=== PATIENT | female | born 1945 | race African-American/Black ===

== ENCOUNTER 2016-11-04 19:58 | Observation (INO) | payer MEDICARE ==
[2016-11-04] MEDS ORDERED: Furosemide 40 MG/4 ML VIAL ONE (20:38)
[2016-11-04 20:53] LABS: Eosinophils 3 % (0-10); Hemoglobin 14.3 g/dL (12.0-16.0); Lymphocytes 14 % (21-51); MDiff Complete? YES; Mean Corpuscular HGB CONC 33.8 g/dL (32.0-36.0); Mean Corpuscular Hemoglobin 31.8 pg (27.0-31.0); Mean Corpuscular Volume 94.3 fl (81.0-99.0); Mean Platelet Volume 6.1 fL (7.4-10.4); Monocytes 3 % (0-10); Neutrophil 80 % (42-75); Platelet Count 350 thou/uL (130-400); RBC Distribution Width 12.7 % (11.5-14.5); Red Blood Cell (RBC) Count 4.49 mill/uL (4.20-5.40); White Blood Cell (WBC) Count 13.2 thou/uL (4.8-10.8)
[2016-11-04 20:55] LABS: CKMB 2.7 ng/mL (0-6.6); Troponin I 0.023 ng/mL (< 0.028)
[2016-11-04 22:35] LABS: ALT (SGPT) 15 U/L (8-55); AST (SGOT) 18 U/L (5-34); Alkaline Phosphatase 153 U/L (40-150); Anion Gap 18 mmol/L (10-20); BUN (Urea Nitrogen) 35 mg/dL (9.8-20.1); Bilirubin, Total 0.4 mg/dL (0.2-1.2); Calc. Creatinine Clearance 0 mL/min (70-130); Calcium 9.7 mg/dL (7.8-10.44); Carbon Dioxide 22 mmol/L (23-31); Chloride 102 mmol/L (98-107); Estimated GFR-MDRD 27; Globulin 4.1 g/dL (2.4-3.5); Glucose 131 mg/dL (83-110); Potassium 4.1 mmol/L (3.5-5.1); Protein, Total 8.1 g/dL (6.0-8.3); Sodium 138 mmol/L (136-145)
[2016-11-04 22:45] VITALS: BMI 39.1
[2016-11-04 22:47] VITALS: TEMP 98.9
[2016-11-04] MEDS ORDERED: Ondansetron ODT 4 MG TAB SL PRN (22:51)
[2016-11-04] MEDS ORDERED: Ondansetron HCl/PF 4 MG/2 ML Vial IVP PRN (22:51)
[2016-11-05] MEDS ORDERED: Guaifenesin DM 100-10/5 ML UDCUP PO PRN (04:23)
[2016-11-05 05:44] LABS: #Basophils 0.1 thou/uL (0.0-0.2); #Eosinphils 0.3 thou/uL (0.0-0.7); #Lymphocytes 1.2 thou/uL (1.20-3.40); #Monocytes 0.7 thou/uL (0.11-0.59); #Neutrophils 7.7 thou/uL (1.40-6.50); %Basophils 0.9 % (0.0-1.0); %Eosinophils 3.3 % (0.0-10.0); %Lymphocytes 12.2 % (21.0-51.0); %Monocytes 6.8 % (0.0-10.0); %Neutrophils 76.8 % (42.0-75.0); Hemoglobin 12.5 g/dL (12.0-16.0); Mean Corpuscular HGB CONC 32.3 g/dL (32.0-36.0); Mean Corpuscular Hemoglobin 30.5 pg (27.0-31.0); Mean Corpuscular Volume 94.6 fl (81.0-99.0); Mean Platelet Volume 6.5 fL (7.4-10.4); Platelet Count 277 thou/uL (130-400); RBC Distribution Width 12.3 % (11.5-14.5); Red Blood Cell (RBC) Count 4.09 mill/uL (4.20-5.40); White Blood Cell (WBC) Count 10.1 thou/uL (4.8-10.8)
[2016-11-05 05:48] LABS: Anion Gap 13 mmol/L (10-20); BUN (Urea Nitrogen) 33 mg/dL (9.8-20.1); Calc. Creatinine Clearance 40 mL/min (70-130); Calcium 9.1 mg/dL (7.8-10.44); Carbon Dioxide 27 mmol/L (23-31); Chloride 103 mmol/L (98-107); Estimated GFR-MDRD 31; Glucose 123 mg/dL (83-110); Potassium 3.8 mmol/L (3.5-5.1); Sodium 139 mmol/L (136-145)
[2016-11-05] MEDS ORDERED: Furosemide 40 MG/4 ML VIAL SLOW IVP SCH (06:00)
[2016-11-05 06:19] VITALS: BP 136/62
--- NOTE | 2016-11-05 07:01 | RAD ---
PORTABLE CHEST: Date: 11/04/16 An AP portable film at 2018 hours is compared with the 08/02/15 study. FINDINGS: Mild to moderate cardiomegaly is about the same as before. Calcific changes are seen in the aortic a rch. There is probably the beginnings of a little vascular congestion, though it is not as prominent as it was on the prior study. No focal lobar infiltrates or large effusions seen. IMPRESSION: Cardiomegaly and probably early congestive change. POS: HOME
--- NOTE | 2016-11-05 07:02 | RAD ---
CHEST 2 VIEWS: Date: 11/04/16 Findings are compared with the portable study done earlier the same evening. There is probably some slight congestive change in the vessels. The heart size is mildly enlarged. There are no effusions. The lungs are mildly hyperexpanded. No definite lobar infiltrate was seen. IMPRESSION: Little change since the prior film. POS: HOME
--- NOTE | 2016-11-05 07:04 | RAD ---
CHEST 2 VIEWS: Date: 11/05/16 Comparison is made with yesterday's studies. The heart enlargement is about the same. There still seems to be some prominence of the vessels. Que stion lies in whether any of the slight basilar haziness could be due to an early infiltrate or not. At this point, the changes have been so slight that I cannot confirm an infiltrate here. There migh t be a tiny amount of pleural fluid on the left today. IMPRESSION: Minimal change since yesterday. Findings somewhat more compatible with mild congestive change than i nfection, though there is some minimal basilar haziness. POS: HOME
--- NOTE | 2016-11-05 11:11 | HP ---
DATE OF ADMISSION: 11/04/2016 DATE OF DISCHARGE: 11/05/2016 CHIEF COMPLAINT: Cold. HISTORY OF PRESENT ILLNESS: A 71-year-old female who presented to [facility] last night secondary to symptoms of what she described as a cold, complaining of coughing over the last few days with some mild congestion , drainage. She denies having a fever, chills or diaphoresis. She was noted to be hypoxic in the emergency department and was placed on supplemental O2. Lab evaluation was done, which showed a slight leukocytosis with left shift and a normal BNP. A chest x-ray was performed, which showed findings somewhat more compatible with mild congestive change than infection and there is some minimal basilar haziness. Upon evaluation this morning, the patient said she feels fine and denies having any shortness of breath. Her supplemental oxygen was removed and on room air, she displayed an oxygen saturation of 92%-93% while ambulatory and 98%-99% while at rest. The patient states that she was on supplemental oxygen a number of years ago; however, it was removed after her reported symptoms had resolved. She denies being an active smoker and quit 25 years ago having no diagnosis of asthma or COPD, also states she was evaluated by Cardiology couple years ago with no evidence of congestive heart failure. Re -evaluation of her lab work this morning shows no leukocytosis. The patient states she felt largely at her baseline other than having residual cold-like symptoms and she feels appropriate for discharge at this time. She has remained afebrile throughout her stay. PAST MEDICAL HISTORY: Type 2 diabetes mellitus, hypertension, chronic kidney disease stage 3, obesity. PAST SURGICAL HISTORY: Total hysterectomy, appendectomy. SOCIAL HISTORY: Patient quit smoking 25 years ago. Denies alcohol or drug use. She lives with her son and grandson. ALLERGIES: ACETAMINOPHEN, HYDROCODONE, LATEX, NATURAL RUBBER, and MORPHINE. FAMILY HISTORY: Noncontributory. CURRENT MEDICATIONS: Include Tramadol 25 mg p.o. t.i.d., hydralazine 100 mg p.o. t.i.d., losartan 100 mg p.o. daily, isosorbide mononitrate extended release 120 mg p.o. daily, Lasix 40 mg p.o. daily, diltiazem extended release 360 mg p.o. daily. She will be discharged with 5-day course of 20 mg p.o. prednisone to be taken daily for her mild upper respiratory symptoms. PHYSICAL EXAMINATION: VITAL SIGNS: Temperature is 98.9, pulse is 65, respiratory rate 18, oxygen is 98% on room air, blood pressure is 136/62. GENERAL: The patient is alert and oriented, no acute distress. She is obese. HEENT: Normocephalic, atraumatic. Pupils equal, round, and reactive to light. Extraocular muscles are intact. Moist mucous membranes. NECK: Supple, with no lymphadenopathy. CARDIOVASCULAR: Regular rate and rhythm, normal S1, S2. She got 2/6 systolic murmur. RESPIRATORY: Clear to auscultation bilaterally without wheezes, rales or rhonchi. ABDOMEN: Soft, nontender to palpation with normal bowel sounds. No masses. EXTREMITIES: No clubbing, cyanosis or edema. NEUROLOGIC: Cranial nerves II through XII are grossly intact. No focal deficits. ASSESSMENT AND PLAN - DC Summary 1. Hypoxia, resolved. The patient may follow up with her primary care provider Dr. Granados at [facility] to further assess this to see if the patient will qualify for home O2 supplement. 2. Cough, no evidence of pneumonia, resolved leukocytosis and chest x-ray reassuring will provide the patient with a 5-day course of 20 mg p.o. prednisone and zpak to help clear her mild symptoms. 3. Chronic kidney disease stage 3. We will follow up with PCP regarding this issue. 4. Hypertension. The patient is hemodynamically stable with blood pressure within normal limits. We will continue her home medication regimen as usual. 5. History of type 2 diabetes mellitus. Encourage diabetic diet. Continue home medications as prescribed. The patient is to be discharged to her home setting at this time. FREDDY
== END 2016-11-05 10:54 | disposition home or self-care (01) ==
LOC: BURERS 19:58 → BURMED 22:00
PROVIDERS: ADMIT Family Medicine; ATTEND Family Medicine
DX: J00 Acute nasopharyngitis [common cold] (principal); E11.22 Type 2 diabetes mellitus with diabetic chronic kidney disease; I12.9 Hypertensive chronic kidney disease with stage 1 through stage 4 chronic kidney disease, or unspecified chronic kidney disease; N18.3 Chronic kidney disease, stage 3 (moderate); I11.9 Hypertensive heart disease without heart failure; E66.9 Obesity, unspecified; R09.02 Hypoxemia; Z68.39 Body mass index [BMI] 39.0-39.9, adult; Z79.52 Long term (current) use of systemic steroids; Z79.899 Other long term (current) drug therapy; Z88.8 Allergy status to other drugs, medicaments and biological substances; Z88.6 Allergy status to analgesic agent; Z88.5 Allergy status to narcotic agent; Z91.040 Latex allergy status; Z90.710 Acquired absence of both cervix and uterus; Z90.49 Acquired absence of other specified parts of digestive tract; Z87.891 Personal history of nicotine dependence
CPT/HCPCS: 36415; 71010; 71020; 80048; 80053; 82553; 83880; 84484; 85025; 93005; 94640; 96374; 96376; G0378; J1940; J7620

== ENCOUNTER 2017-05-31 13:49 | Emergency (ER) | payer MEDICARE ==
--- NOTE | 2017-05-31 16:44 | RAD ---
CHEST TWO VIEWS: 05/31/17 Comparison is made with a 11/05/16 study. The heart is normal in size today and actually appears sligh tly smaller than before. There is no gross congestive change, though the central vessels are perhaps a little more prominent than usual. I cannot confidently diagnose CHF at this point in time. There is no sign of pneumonia. The lungs are mildly hyperexpanded. IMPRESSION: No definite acute change. POS: HOME
== END 2017-05-31 14:31 | disposition home or self-care (01) ==
LOC: BURERS 13:49
DX: J06.9 Acute upper respiratory infection, unspecified (principal); J44.9 Chronic obstructive pulmonary disease, unspecified; G47.30 Sleep apnea, unspecified; E11.9 Type 2 diabetes mellitus without complications; I10 Essential (primary) hypertension; Z87.891 Personal history of nicotine dependence; Z79.84 Long term (current) use of oral hypoglycemic drugs; Z79.899 Other long term (current) drug therapy
CPT/HCPCS: 71046

== ENCOUNTER 2021-02-08 08:58 | Emergency (ER) | payer MEDICARE ==
[2021-02-08] MEDS ORDERED: Ondansetron PF 4 MG/2 ML Vial ONE (09:40)
[2021-02-08 09:46] LABS: #Basophils 0.1 thou/uL (0.0-0.2); #Lymphocytes 0.6 thou/uL (1.20-3.40); #Monocytes 0.5 thou/uL (0.11-0.59); #Neutrophils 12.9 thou/uL (1.40-6.50); %Basophils 0.6 % (0.0-1.0); %Eosinophils 0.2 % (0.0-10.0); %Lymphocytes 3.9 % (21.0-51.0); %Monocytes 3.4 % (0.0-10.0); %Neutrophils 91.8 % (42.0-75.0); Hemoglobin 14.3 g/dL (12.0-16.0); Mean Corpuscular HGB CONC 33.2 g/dL (32.0-36.0); Mean Corpuscular Volume 93.1 fL (78.0-98.0); Mean Platelet Volume 6.1 fL (7.4-10.4); Platelet Count 351 thou/uL (130-400); RBC Distribution Width 11.9 % (11.5-14.5); Red Blood Cell (RBC) Count 4.61 mill/uL (4.20-5.40)
[2021-02-08] MEDS ORDERED: Fentanyl 100 MCG/2 ML VIAL ONE (09:54)
[2021-02-08 10:03] LABS: ALT (SGPT) 13 U/L (8-55); AST (SGOT) 17 U/L (5-34); Albumin 4.2 g/dL (3.4-4.8); Alkaline Phosphatase 93 U/L (40-110); Anion Gap 17 mmol/L (10-20); BUN (Urea Nitrogen) 22 mg/dL (9.8-20.1); Bilirubin, Total 0.6 mg/dL (0.2-1.2); Calc. Creatinine Clearance 0 mL/min (70-130); Calcium 10.4 mg/dL (7.8-10.44); Carbon Dioxide 30 mmol/L (23-31); Chloride 99 mmol/L (98-107); Globulin 3.5 g/dL (2.4-3.5); Glucose 135 mg/dL (83-110); Lipase 25 U/L (8-78); Potassium 3.8 mmol/L (3.5-5.1); Protein, Total 7.7 g/dL (5.8-8.1); Sodium 142 mmol/L (136-145)
[2021-02-08 12:01] LABS: Bilirubin Negative (Negative); Blood, Urine Trace (Negative); Clarity Clear (Clear); Glucose, Urine (Dipstick) Negative (Negative); Ketone, Urine Negative (Negative); Leukocyte Negative (Negative); Nitrite Negative (Negative); Protein, Urine (Dipstick) 100 mg/dL (Neg-Trace); Specific Gravity, Urine 1.015 (1.005-1.030)
[2021-02-08 12:14] LABS: pH, Urine 8.5 (5.0-9.0)
[2021-02-08 12:22] LABS: Bacteria/HPF Rare-Few HPF (None Seen); RBC/HPF 0-3 HPF (0-3); Squamous Epithelial 0-3 HPF (0-3); WBC/HPF None Seen HPF (0-3)
[2021-02-08 12:23] LABS: Triple Phosphate Crystal Rare HPF (None Seen)
== END 2021-02-08 13:11 | disposition home or self-care (01) ==
LOC: BURERS 08:58
DX: K59.00 Constipation, unspecified (principal); I10 Essential (primary) hypertension; E11.9 Type 2 diabetes mellitus without complications; J44.9 Chronic obstructive pulmonary disease, unspecified; G47.30 Sleep apnea, unspecified; Z87.891 Personal history of nicotine dependence; Z79.899 Other long term (current) drug therapy; Z79.82 Long term (current) use of aspirin
CPT/HCPCS: 74176; 80053; 81003; 81015; 83605; 83690; 83880; 84484; 85025; 93005; 96374; 96375; J2405; J3010

== ENCOUNTER 2024-10-27 13:03 | Emergency (ER) | payer MEDICARE, OTHER ==
[2024-10-27] MEDS ORDERED: Droperidol 5 MG/2 ML VIAL ONE (13:36)
[2024-10-27 13:46] LABS: Glucose, Urine (Dipstick) Negative (Negative); Leukocyte Negative (Negative); Protein, Urine (Dipstick) 30 mg/dL (Neg-Trace); Specific Gravity, Urine 1.015 (1.005-1.030)
[2024-10-27 13:53] LABS: Bacteria/HPF Rare-Few HPF (None Seen); CAUTI Indications for Culture Pelvic or flank pain; RBC/HPF 21-50 HPF (0-3); WBC/HPF 0-3 HPF (0-3)
[2024-10-27 13:54] LABS: Urine Culture Reflex No No
[2024-10-27 13:56] LABS: Hematocrit 32.9 % (36.0-47.0); Hemoglobin 11.9 g/dL (12.0-16.0); MDiff Complete? YES; Mean Corpuscular Hemoglobin 32.2 pg (27.0-31.0); Mean Corpuscular Volume 89.4 fl (78.0-98.0); Nucleated RBC (Manual Ct) 2 % (0); Platelet Count 292 10x3/uL (130-400); Red Blood Cell (RBC) Count 3.68 mill/uL (4.20-5.40); White Blood Cell (WBC) Count 11.3 10x3/uL (4.8-10.8)
[2024-10-27 13:58] LABS: ALT (SGPT) 10 U/L (Less than 34); AST (SGOT) 21 U/L (11-34); Albumin 4.1 g/dL (3.1-4.5); Alkaline Phosphatase 78 U/L (40-110); Anion Gap 16 mmol/L (10-20); BUN (Urea Nitrogen) 31 mg/dL (9.8-20.1); Bilirubin, Total 0.6 mg/dL (0.3-1.2); Calc. Creatinine Clearance 0 mL/min (70-130); Calcium 9.7 mg/dL (7.8-10.44); Carbon Dioxide 26 mmol/L (23-31); Chloride 102 mmol/L (98-107); Globulin 3.1 g/dL (2.4-3.5); Glucose 121 mg/dL (83-110); Lipase 38 U/L (8-78); Potassium 4.1 mmol/L (3.5-5.1); Sodium 140 mmol/L (136-145)
[2024-10-27] MEDS ORDERED: Benzocaine 20% Spray 60 ML CAN ONE (15:26)
== END 2024-10-27 19:25 | disposition short-term general hospital (02) ==
LOC: BURERS 13:03
DX: K56.609 Unspecified intestinal obstruction, unspecified as to partial versus complete obstruction (principal); J44.9 Chronic obstructive pulmonary disease, unspecified; I10 Essential (primary) hypertension; E11.51 Type 2 diabetes mellitus with diabetic peripheral angiopathy without gangrene; Z79.82 Long term (current) use of aspirin; Z87.891 Personal history of nicotine dependence; Z79.899 Other long term (current) drug therapy
CPT/HCPCS: 43752; 74018; 74176; 80053; 81001; 83605; 83690; 85025; 96374; J1790